=== PATIENT | female | born 1975 | race Asian ===

== ENCOUNTER 2017-07-07 11:35 | Inpatient (IN) | payer BC, OTHER ==
--- NOTE | 2017-07-07 12:22 | PDOC ---
History of Present Illness - General Chief Complaint: Pain, Acute Stated Complaint: PAIN Time Seen by Provider: 07/07/17 12:08 - History of Present Illness Initial Comments: 07/07/17 12:32 Patient is a 41 year old female with a history of peptic ulcers who presents with epigastric abdominal pain with associated back pain. The patient reports that she was diagnosed with peptic ulcers 3 years ago that has been controlled with anti-acid medications. Over the past 3 weeks she has been getting more frequent episodes of burning epigastric pain similar to her pain with the peptic ulcers as well as severe 10/10 episodes of achy back pain that last for 2 -3 hours. She states that she is more concerned about the back pain as the pain episodes are now occurring more frequently almost every other day prompting her visit to the ED today. She also endorses some subjective chills after the pain episodes and notes that her stools appear more paler than usual and her urine appears orange. She denies fevers, SOB, chest pain, or pain with urination. Past History - Past Medical History Allergies/Adverse Reactions: Allergies Allergy/AdvReac Type Severity Reaction Status Date / Time aspirin Allergy Hives Verified 07/07/17 11:51 Penicillins Allergy unknown Verified 07/07/17 11:51 Home Medications: Ambulatory Orders Omeprazole 40 mg PO DAILY 07/07/17 Ranitidine HCl [Zantac] 150 mg PO BID 07/07/17 Anemia: No Asthma: No Cardiac Disorders: No Diabetes: No GI Disorders: Yes (ulcers) HTN: No Hypercholesterolemia: No - Reproductive History (#): 1 Para: 0 - Immunization History Immunization Up to Date: Yes - Psycho/Social/Smoking Cessation Hx Suicidal Ideation: No Smoking Status: No Smoking History: Never smoked Number of Cigarettes Smoked Daily: 0 Information on smoking cessation initiated: No Hx Alcohol Use: No Drug/Substance Use Hx: No Substance Use Type: None Review of Systems - Review of Systems Constitutional: Yes: Chills, Malaise. No: Fever HEENTM: No: Recent change in vision Respiratory: No: Cough, Shortness of Breath Cardiac (ROS): No: Chest Pain, Lightheadedness, Palpitations ABD/GI: Yes: Constipated, Poor Appetite. No: Blood Streaked Bowels, Diarrhea, Nausea, Vomiting, Tarry Stools : No: Burning, Dysuria, Discharge Musculoskeletal: Yes: Back Pain Integumentary: No: Rash Neurological: No: Headache, Numbness, Tingling, Weakness *Physical Exam - Vital Signs Last Vital Signs Temp Pulse Resp BP Pulse Ox 98.2 F 66 18 101/63 99 07/07/17 11:52 07/07/17 11:52 07/07/17 11:52 07/07/17 11:52 07/07/17 11:52 - Physical Exam Comments: 07/07/17 12:38 General Appearance: Nourished. No Apparent Distress HEENT: No Pharyngeal Erythema, Tonsillar Exudate, Tonsillar Erythema Neck: No Cervical Lymphadenopathy Respiratory/Chest: Lungs Clear, Normal Breath Sounds. No Crackles, Rales, Rhonchi, Wheezing Cardiovascular: Regular Rhythm, Regular Rate. No Murmur, Gallop/S3, Gallop/S4 Gastrointestinal/Abdominal: Normal Bowel Sounds, Soft, Mild epigastric tenderness to palpation. No Guarding, Rebound Musculoskeletal: No CVA Tenderness Extremity: Normal Capillary Refill Integumentary: Normal Color, Dry, Warm Neurologic: Fully Oriented, Alert, Normal Mood/Affect, Normal Response Heart Score/ECG Review #1 ECG reviewed & interpreted by me at: 14:59 General ECG Interpretation: Sinus Rhythm, Normal Rate (55), Normal Intervals, No acute ischemic changes ED Treatment Course - LABORATORY CBC & Chemistry Diagram: 07/07/17 13:00 07/07/17 13:00 Medical Decision Making - Medical Decision Making 07/07/17 12:40 Patient is a 41 year old female with a history of peptic ulcers who presents with epigastric abdominal pain with associated back pain. Differential includes but is not limited to: Peptic Ulcer, Gastritis, Pancreatitis, Cholecystitis, Nephrolethiasis, Pyelonephritis, UTI, Metabolic derangement. Given her description of orange urine and severe back pain episodes, it is possible her pain is due to nephrolethiasis. It is also a possibility that her pain is due to cholecystitis, given it's intermittent nature and history of pale stools. Her epigastric pain could be due to her known peptic ulcer disease as well. We will obtain a cbc, cmp, lipase, troponin, EKG, gallbladder US, and UA to evaluate. 07/07/17 13:00 I performed a bedside US that showed a gallbladder wall thickness of 0.18 ( normal .3), no stones, no pericystic fluid and a normal gallbladder. Right and left kidneys demonstrated no hydronephrosis or kidney stones. We will send for an official. 07/07/17 14:15 Official US demonstrated cholelethiasis with multiple stones and sludge and no obvious signs of cholecystitis. CBC is unremarkable and CMP demonstrates an elevation in liver enzymes and biliruben concerning for obstructive disease. It is likely her symptoms are due to cholelethiasis. We will contact the patient's GI specialist Dr. Currie to discuss the case and admit to the hospitalists. 07/07/17 14:32 Discussed the case with Dr. Currie who agreed to consult on the patient and will see her once she is admitted. He requested we obtain a MRCP to evaluate. 07/07/17 14:53 Discussed the case with resident with [facility] who accepted the patient for admission under Dr. López. 07/07/17 15:48 Discussed the case with Dr. Hawk from Surgery who agrees with admission and will evaluate the patient after MRCP. *DC/Admit/Observation/Transfer Diagnosis at time of Disposition: Cholecystitis - Discharge Dispostion Condition at time of disposition: Guarded Admit: Yes
[2017-07-07] MEDS ORDERED: MAG HYDROX/AL HYDROX/SIMETH 30 ML UNIT-DOSE CUP PO ONE (12:57)
[2017-07-07] MEDS ORDERED: SUCRALFATE 1 GM TABLET (FP) PO ONE (12:59)
[2017-07-07] MEDS ORDERED: MAG HYDROX/AL HYDROX/SIMETH 30 ML UNIT-DOSE CUP ONE (13:06)
[2017-07-07] MEDS ORDERED: SUCRALFATE 1 GM TABLET (FP) ONE (13:06)
--- NOTE | 2017-07-07 13:18 | PDOC ---
Attending Attestation - Resident Resident Name: MakiLarry - ED Attending Attestation I have performed the following: I have examined & evaluated the patient, The case was reviewed & discussed with the resident, I agree w/resident's findings & plan, Exceptions are as noted - HPI HPI: 07/07/17 13:03 41-year-old female patient with past medical history of peptic ulcer disease presents to the emergency department for persistent epigastric pain. The patient has had persisting gastritis has progressively worsen last 3 weeks. Several years ago she had an endoscopy performed which demonstrated peptic ulcers but no H. pylori. She's been taking Nexium and Zantac with some minimal relief. Denies nausea or vomiting. However, given the pain, the patient reports that she is now eating crackers and bland food. Denies fevers or chills. Came to the ED for further evaluation. - Physicial Exam PE: 07/07/17 13:18 GENERAL: Awake, alert, and fully oriented, in no acute distress. HEAD: No signs of trauma EYES: PERRLA, EOMI, sclera anicteric, conjunctiva clear ENT: Auricles normal inspection, hearing grossly normal, nares patent, oropharynx clear without exudates. NECK: Normal ROM, supple, no lymphadenopathy, JVD, or masses LUNGS: Breath sounds equal, clear to auscultation bilaterally. No wheezes, and no crackles HEART: Regular rate and rhythm, normal S1 and S2, no murmurs, rubs or gallops ABDOMEN: .TTP epigastric and RUQ. reyes positive. Soft, normoactive bowel sounds. No guarding, no rebound. No masses EXTREMITIES: Normal range of motion, no edema. No clubbing or cyanosis. No cords, erythema, or tenderness NEUROLOGICAL: Cranial nerves II through XII grossly intact. Normal speech, normal gait SKIN: Warm, Dry, normal turgor, no rashes or lesions noted. - Medical Decision Making 07/07/17 13:19 Vital Signs Temp Pulse Resp BP Pulse Ox 98.2 F 66 18 101/63 99 07/07/17 11:52 07/07/17 11:52 07/07/17 11:52 07/07/17 11:52 07/07/17 11:52 Differential differential includes gastritis, peptic ulcer disease, pancreatitis , acute cholecystitis, biliary colic. Labs, ultrasound, GERD cocktail and reassess. 07/07/17 14:05 CBC, BMP 07/07/17 13:00 07/07/17 13:00 CMP Sodium 140 mmol/L (136-145) 07/07/17 13:00 Potassium 3.8 mmol/L (3.5-5.1) 07/07/17 13:00 Chloride 102 mmol/L (98-107) 07/07/17 13:00 Carbon Dioxide 30 mmol/L (21-32) 07/07/17 13:00 Anion Gap 8 (8-16) 07/07/17 13:00 BUN 8 mg/dL (7-18) 07/07/17 13:00 Creatinine 0.7 mg/dL (0.55-1.02) D 07/07/17 13:00 Creat Clearance w eGFR > 60 (>60) 07/07/17 13:00 Random Glucose 93 mg/dL (74-106) D 07/07/17 13:00 Calcium 9.1 mg/dL (8.5-10.1) 07/07/17 13:00 Total Bilirubin 3.0 mg/dL (0.2-1.0) H D 07/07/17 13:00 AST 79 U/L (15-37) H D 07/07/17 13:00 ALT 244 U/L (12-78) H D 07/07/17 13:00 Alkaline Phosphatase 507 U/L (45-117) H D 07/07/17 13:00 Creatine Kinase 73 IU/L (26-192) 07/07/17 13:00 Troponin I < 0.02 ng/ml (0.00-0.05) 07/07/17 13:00 Total Protein 7.7 g/dl (6.4-8.2) 07/07/17 13:00 Albumin 4.0 g/dl (3.4-5.0) D 07/07/17 13:00 Lipase 234 U/L (73-393) 07/07/17 13:00 Ultrasound reviewed. Cholethiasis and sludging. Can not rule out acute norah. CBD 0.5 Zosyn ordered. Within differential is choledholithiasis and/or acute norah. Pt sees Dr. Currie. Pt will likely need MRCP. Will admit patient to hospital.
[2017-07-07 13:38] LABS: BASOPHIL 0.3 % (0-2.0); EOSINOPHIL 0.7 % (0-4.5); MCH 26.7 pg (25.7-33.7); MCHC 32.8 g/dl (32.0-36.0); MEAN CELL VOLUME 81.2 fl (80-96); MEAN PLT VOLUME 7.5 fl (7.5-11.1); NEUTROPHILS 78.7 % (42.8-82.8); PLATELET COUNT 280 K/MM3 (134-434); RDW 14.1 % (11.6-15.6); WHITE BLOOD COUNT 8.8 K/mm3 (4.0-10.0)
[2017-07-07 13:47] LABS: CPK 73 IU/L (26-192); TROPONIN I < 0.02 ng/ml (0.00-0.05)
[2017-07-07 13:54] LABS: ALK PHOS 507 U/L (45-117); ANION GAP 8 (8-16); CALCIUM 9.1 mg/dL (8.5-10.1); CO2 30 mmol/L (21-32); CREATININE 0.7 mg/dL (0.55-1.02); GLUCOSE,RANDOM 93 mg/dL (74-106); SGOT/AST 79 U/L (15-37); SGPT/ALT 244 U/L (12-78); TOT PROT 7.7 g/dl (6.4-8.2)
[2017-07-07] MEDS ORDERED: METRONIDAZOLE 500 MG PREMIXED 100 ML IVPB ONE ×2 (14:17→14:35)
[2017-07-07] MEDS ORDERED: LEVOFLOXACIN 500 MG IVPB 100 ML IVPB ONE ×2 (14:17→14:35)
[2017-07-07 15:07] LABS: URINE APPEARANCE CLEAR; URINE BILIRUBIN NEGATIVE (NEGATIVE); URINE BLOOD 1+ (NEGATIVE); URINE COLOR YELLOW; URINE GLUCOSE (UA) NEGATIVE (NEGATIVE); URINE KETONE NEGATIVE (NEGATIVE); URINE LEUK ESTERASE TRACE (NEGATIVE); URINE NITRITE NEGATIVE (NEGATIVE); URINE PROTEIN NEGATIVE (NEGATIVE); URINE UROBILINOGEN NEGATIVE mg/dL (0.2-1.0)
[2017-07-07] MEDS ORDERED: SODIUM CHLORIDE 1,000 ML IV SCH (15:15)
[2017-07-07 15:25] LABS: URINE RBC 1 /hpf (0-3); URINE WBC 5 /hpf (3-5)
--- NOTE | 2017-07-07 16:11 | CON.GI ---
Consult Consult Specialty:: Gastroenterology Referred by:: Dr Galicia Reason for Consultation:: Abdominal pain - History of Present Illness Chief Complaint: Abdominal pain radiating into the back History of Present Illness: 41F presents with abdominal pain that radiates into her back. She is known to have gallstones. MRCP has been discussed with Dr Urrutia. It revealed GB stones and pericholecystic fluid but no CBD stones. She has been taking omeprazole and gaviscon for this pain since I recently saw her in the office and has not had relief. She has been having almost daily pain, sometimes with chills. She has been afraid to eat. She had an EGD with me about 3 years ago which revealed shallow gastric ulcerations. 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 Place of : [facility] History of Recent Travel: No Home Medications - Allergies Allergies/Adverse Reactions: Allergies Allergy/AdvReac Type Severity Reaction Status Date / Time aspirin Allergy Hives Verified 07/07/17 11:51 Penicillins Allergy unknown Verified 07/07/17 11:51 - Home Medications Home Medications: Ambulatory Orders Omeprazole 40 mg PO DAILY 07/07/17 Ranitidine HCl [Zantac] 150 mg PO BID 07/07/17 Family Disease History - Family Disease History Family Disease History: Other: Father ( CVA in his 60s), Mother (alive) Review of Systems - Review of Systems Constitutional: reports: Chills Eyes: reports: No Symptoms HENT: reports: No Symptoms Neck: reports: No Symptoms Cardiovascular: reports: No Symptoms Respiratory: reports: No Symptoms Gastrointestinal: reports: Abdominal Pain, Nausea Genitourinary: reports: No Symptoms Musculoskeletal: reports: No Symptoms Integumentary: reports: No Symptoms Neurological: reports: No Symptoms Endocrine: reports: No Symptoms Hematology/Lymphatic: reports: No Symptoms Psychiatric: reports: No Symptoms Physical Exam-GI Vital Signs: Vital Signs Temperature 98 F 07/07/17 15:50 Pulse Rate 81 07/07/17 15:50 Respiratory Rate 17 07/07/17 15:50 Blood Pressure 131/75 07/07/17 15:50 O2 Sat by Pulse Oximetry (%) 98 07/07/17 15:50 CBC,CMP WBC 8.8 K/mm3 (4.0-10.0) 07/07/17 13:00 RBC 5.12 M/mm3 (3.60-5.2) D 07/07/17 13:00 Hgb 13.7 GM/dL (10.7-15.3) D 07/07/17 13:00 Hct 41.6 % (32.4-45.2) D 07/07/17 13:00 MCV 81.2 fl (80-96) 07/07/17 13:00 MCH 26.7 pg (25.7-33.7) 07/07/17 13:00 MCHC 32.8 g/dl (32.0-36.0) 07/07/17 13:00 RDW 14.1 % (11.6-15.6) 07/07/17 13:00 Plt Count 280 K/MM3 (134-434) D 07/07/17 13:00 MPV 7.5 fl (7.5-11.1) 07/07/17 13:00 Neutrophils % 78.7 % (42.8-82.8) 07/07/17 13:00 Lymphocytes % 11.0 % (8-40) 07/07/17 13:00 Monocytes % 9.3 % (3.8-10.2) D 07/07/17 13:00 Eosinophils % 0.7 % (0-4.5) D 07/07/17 13:00 Basophils % 0.3 % (0-2.0) 07/07/17 13:00 Sodium 140 mmol/L (136-145) 07/07/17 13:00 Potassium 3.8 mmol/L (3.5-5.1) 07/07/17 13:00 Chloride 102 mmol/L (98-107) 07/07/17 13:00 Carbon Dioxide 30 mmol/L (21-32) 07/07/17 13:00 Anion Gap 8 (8-16) 07/07/17 13:00 BUN 8 mg/dL (7-18) 07/07/17 13:00 Creatinine 0.7 mg/dL (0.55-1.02) D 07/07/17 13:00 Creat Clearance w eGFR > 60 (>60) 07/07/17 13:00 Random Glucose 93 mg/dL (74-106) D 07/07/17 13:00 Calcium 9.1 mg/dL (8.5-10.1) 07/07/17 13:00 Total Bilirubin 3.0 mg/dL (0.2-1.0) H D 07/07/17 13:00 AST 79 U/L (15-37) H D 07/07/17 13:00 ALT 244 U/L (12-78) H D 07/07/17 13:00 Alkaline Phosphatase 507 U/L (45-117) H D 07/07/17 13:00 Creatine Kinase 73 IU/L (26-192) 07/07/17 13:00 Troponin I < 0.02 ng/ml (0.00-0.05) 07/07/17 13:00 Total Protein 7.7 g/dl (6.4-8.2) 07/07/17 13:00 Albumin 4.0 g/dl (3.4-5.0) D 07/07/17 13:00 Lipase 234 U/L (73-393) 07/07/17 13:00 Current Medications Generic Name Dose Route Start Last Admin Trade Name Freq PRN Reason Stop Dose Admin Sodium Chloride 1,000 mls @ 100 mls/hr 07/07/17 15:15 07/07/17 15:48 Normal Saline - IV 100 mls/hr ASDIR TITA Administration Constitutional: Yes: Calm Eyes: Yes: Sclera Icterus HENT: Yes: Normocephalic Neck: Yes: Supple Cardiovascular: Yes: Regular Rate and Rhythm Respiratory: Yes: CTA Bilaterally Gastrointestinal Inspection: Yes: Scars (healed RIH incision) ...Auscultate: Yes: Normoactive Bowel Sounds ...Palpate: Yes: Soft, Tenderness (RUQ but no rebound) ...Rectal Exam: Yes: Deferred (was guaiac negative recently in the office) Imaging - Results MRI: Image Reviewed (normal CBD, gallstones with pericholecystic fluid) Assessment/Plan The elevated LFTs suggest stone passage through the CBD. The MRCP indicates that the stone has passed but will need to follow the LFT pattern. If they fail to normalize then an ERCP may become necessary. I have discussed ERCP in detail with the patient and informed her of the potential for such risks as perforation , hemorrhage and multiorgan failure that can arise after ERCP induced pancreatitis. She is in a position to make an informed consent. If LFTs begin to normalized can proceed with lap choly and ideally with intraoperative cholangiogram. Discussed case with Dr Hawk. Agree with need for antibiotics
[2017-07-07] MEDS ORDERED: LACTATED RINGERS SOLUTION 1,000 ML IV SCH (17:00)
[2017-07-07 17:31] VITALS: BMI 19.7
--- NOTE | 2017-07-07 17:41 | CONSULT ---
Consult Consult Specialty:: General Surgery Referred by:: ER/Dr. Gambino Reason for Consultation:: cholecystitis/poss choledocholithiasis - History of Present Illness Chief Complaint: epigastric pain to back, anorexia, chills History of Present Illness: 41yo healthy F with h/o gastritis and peptic ulcer dx on endoscopy 3 yrs ago on daily omeprazole, began having epigastric pain a little over 3 weeks ago and thought it was her PUD. She also takes Zantac prn, but it wasn't helping. She recalls the first severe episode occurring on Jun 14, but does not relate it to specific food intake. The pain is focused in the epigastric area but also hurts in the center of her back. She continued taking her anti-acid medications, but the pain has continued to come and go with increasing frequency. When the pain goes away, it is entirely gone, but when it occurs, it has caused significant pain, sometimes associated with chills. 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 She had not had n/v until last night, when she did have one episode which came on after eating some crackers. In the last several days, she has mainly tolerated crackers and almond milk. Yesterday, she did try a little bit of salmon as well, before the pain returned. She has f/u scheduled with Dr. Currie from GI for Jul 22, but came to ER today because she was getting concerned about the increasing frequency of pain and that it was in her back, not just her abdomen. She thinks she was told in the past that she does have gallstones but that there was no concern about them at the time. In the ER, she is afebrile, wbc 8.8, lipase normal, LFTs elevated with bili 3, alk phos 500, ALT/AST up. US showed gallstones, mildly distended gb, no wall thickening or pericholecystic fluid, cbd 5mm, no dilation or intraductal stones. GI was consulted, and MRCP has been done. This shows gallstones as well , with a little bit of fluid under the right edge of liver and gallbladder fundus, mildly overdistended gb, cbd 6-7mm, no biliary dilation and no intraductal stones. She has been admitted to the hospitalist service for presumed cholecystitis. ER started fluids and Levo/Flagyl, as she is allergic to penicillin. The patient states this was from a scratch allergy test, though she doesn't know if she has taken pcn before with any reaction. She might have taken amoxicillin in the past without reaction. She currently has no pain without palpation. - History Source History Provided By: Patient Limitations to Obtaining History: No Limitations - Past Medical History Gastrointestinal: Yes: Gastritis, Peptic Ulcer Disease (dx 3 yrs ago on endoscopy - sched for f/u 07/22/17) Hepatobiliary: Yes: Cholelithiasis ...LMP: 12/12/12 ...: No ...: 2 ...Para: 2 - Past Surgical History Past Surgical History: Yes: Hernia Repair (right inguinal hernia repair at age 13), Upper Endoscopy (3 yrs ago w/Dr. 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 History of Recent Travel: No Home Medications - Allergies Allergies/Adverse Reactions: Allergies Allergy/AdvReac Type Severity Reaction Status Date / Time aspirin Allergy Hives Verified 07/07/17 11:51 Penicillins Allergy unknown Verified 07/07/17 11:51 - Home Medications Home Medications: Ambulatory Orders Omeprazole 40 mg PO DAILY 07/07/17 Ranitidine HCl [Zantac] 150 mg PO BID 07/07/17 Home Medications (free text): MVI but not in last couple weeks Family Disease History - Family Disease History Family Disease History: Other: Father ( CVA in his 60s), Mother (alive) Review of Systems - Review of Systems Constitutional: reports: Chills (with/after pain comes), Loss of Appetite. denies: Fever Eyes: reports: Other (wears contact lenses). denies: Recent Change in Vision HENT: denies: Difficult Swallowing, Throat Pain Neck: denies: Swollen Glands, Tenderness Cardiovascular: denies: Chest Pain, Palpitations Respiratory: denies: Cough, SOB Gastrointestinal: reports: Abdominal Pain (with hpi x 3 weeks, getting more frequent), Vomiting (one episode last night), Other (stools light yellow x 3 weeks). denies: Constipation, Diarrhea Genitourinary: denies: Burning, Discharge, Other (urine dark/orange last 3 wks) Musculoskeletal: denies: Back Pain, Joint Pain Integumentary: reports: Change in Color (noticed when pointed out in ER - slt yellowish). denies: Rash Neurological: denies: Dizziness, Headache Physical Exam Vital Signs: Vital Signs Temperature 98 F 07/07/17 15:50 Pulse Rate 66 07/07/17 16:45 Respiratory Rate 18 07/07/17 16:45 Blood Pressure 108/73 07/07/17 16:45 O2 Sat by Pulse Oximetry (%) 100 07/07/17 16:45 Constitutional: Yes: Well Nourished, No Distress, Calm Eyes: Yes: EOM Intact, Sclera Icterus, Other (+ contact lenses bilaterally) HENT: Yes: Atraumatic, Normocephalic, Other (yellow underneath tongue) Neck: Yes: Supple, Trachea Midline Cardiovascular: Yes: Regular Rate and Rhythm. No: Murmur Respiratory: Yes: Regular, CTA Bilaterally Gastrointestinal: Yes: Normal Bowel Sounds, Soft, Tenderness, Epigastrium ( without rebound or guarding). No: Distention ...Rectal Exam: Yes: Deferred Renal/: No: CVA Tenderness - Left, CVA Tenderness - Right Musculoskeletal: No: Back Pain, Joint Swelling Extremities: Yes: Cool (fingertips/hands). No: Cyanosis, Delayed Capillary Refill Edema: No Peripheral Pulses WNL: Yes Integumentary: Yes: Jaundice (pt able to appreciate mild jaundice once pointed out). No: Rash Neurological: Yes: Alert, Oriented Psychiatric: Yes: Alert, Oriented Labs: CBCD WBC 8.8 K/mm3 (4.0-10.0) 07/07/17 13:00 RBC 5.12 M/mm3 (3.60-5.2) D 07/07/17 13:00 Hgb 13.7 GM/dL (10.7-15.3) D 07/07/17 13:00 Hct 41.6 % (32.4-45.2) D 07/07/17 13:00 MCV 81.2 fl (80-96) 07/07/17 13:00 MCHC 32.8 g/dl (32.0-36.0) 07/07/17 13:00 RDW 14.1 % (11.6-15.6) 07/07/17 13:00 Plt Count 280 K/MM3 (134-434) D 07/07/17 13:00 MPV 7.5 fl (7.5-11.1) 07/07/17 13:00 CMP Sodium 140 mmol/L (136-145) 07/07/17 13:00 Potassium 3.8 mmol/L (3.5-5.1) 07/07/17 13:00 Chloride 102 mmol/L (98-107) 07/07/17 13:00 Carbon Dioxide 30 mmol/L (21-32) 07/07/17 13:00 Anion Gap 8 (8-16) 07/07/17 13:00 BUN 8 mg/dL (7-18) 07/07/17 13:00 Creatinine 0.7 mg/dL (0.55-1.02) D 07/07/17 13:00 Creat Clearance w eGFR > 60 (>60) 07/07/17 13:00 Calcium 9.1 mg/dL (8.5-10.1) 07/07/17 13:00 Total Bilirubin 3.0 mg/dL (0.2-1.0) H D 07/07/17 13:00 AST 79 U/L (15-37) H D 07/07/17 13:00 ALT 244 U/L (12-78) H D 07/07/17 13:00 Alkaline Phosphatase 507 U/L (45-117) H D 07/07/17 13:00 Total Protein 7.7 g/dl (6.4-8.2) 07/07/17 13:00 Albumin 4.0 g/dl (3.4-5.0) D 07/07/17 13:00 lipase 234 (wnl) Imaging - Results Ultrasound: Report Reviewed (see hpi), Image Reviewed MRI: Report Reviewed (see hpi), Image Reviewed Problem List - Problems (1) Calculus of gallbladder with acute and chronic cholecystitis without obstruction Assessment/Plan: admitted to medicine no MRCP evidence of choledocholithiasis, but labs suggest likely passage of stone NPO/IVF pain meds prn GI/DVT prophylaxis IV antibiotics trend labs including amylase/lipase in am check coags, send T&S in am if LFTs and/or WBC up in am, GI is prepared to proceed with ERCP tomorrow afternoon if labs normalizing, will plan for surgery Fri or Fri Discussed R/B/A of laparoscopic possible open cholecystectomy with patient including but not limited to bleeding, infection, injury to adjacent structures , bile duct leak or injury, need for further procedures; alternatives include delayed or no surgery with attendant risks of recurrent cholecystitis, pancreatitis, sepsis, cholangitis. Pt understands and is agreeable to operation ; informed consent signed and on chart for same. Code(s): K80.12 - CALCULUS OF GB W ACUTE AND CHRONIC CHOLECYST W/O OBSTRUCTION (2) Elevated LFTs Assessment/Plan: see above Code(s): R79.89 - OTHER SPECIFIED ABNORMAL FINDINGS OF BLOOD CHEMISTRY (3) PUD (peptic ulcer disease) Assessment/Plan: continue PPI while in hospital Code(s): K27.9 - PEPTIC ULC, SITE UNSP, UNSP AC OR CHR, W/O HEMOR OR PERF Assessment/Plan Thank you for the opportunity to participate in the care of this patient.
--- NOTE | 2017-07-07 18:13 | PN ---
Teaching Attending Note Name of Resident: Oscar Bonner ATTENDING PHYSICIAN STATEMENT I saw and evaluated the patient. I reviewed the resident's note and discussed the case with the resident. I agree with the resident's findings and plan as documented. SUBJECTIVE: This is a 41 year old woman with a history of gastric ulcers, gallstones who comes to the ER complaining of epigastric pain that radiates to her back. She recently saw Dr. Currie for similar symptoms and started taking Gaviscon and Omeprazole. She has a history of gastric ulcers found on EGD 3 years ago. OBJECTIVE: Vital Signs Period Temp Pulse Resp BP Sys/Ford Pulse Ox Last 24 Hr 98 F-98.2 F 66-81 17-18 101-131/63-75 98-100 GENERAL: Jaundiced HEART: S1S2, RRR LUNGS: Clear ABDOMEN: Soft, non-distended, (+) RUQ tenderness, normal BS EXTREMITIES: No edema ASSESSMENT AND PLAN: This is a 41 year old woman with a history of gastric ulcers, gallstones who presented to the ER today with epigastric pain radiating to her back. 1. Cholelithiasis with probable choledocholithiasis and passed stone - RUQ US shows GB sludge, no evidence of cholecystitis, normal CBD - MRCP shows cholelithiasis, trace free fluid, mild overdistention of GB, borderline CBD - NPO - Levaquin, Flagyl - IV fluid - Repeat LFTs in AM - if improving, will do laparoscopic cholecystectomy, otherwise will need ERCP 2. Gastric ulcers - Protonix
[2017-07-07] MEDS: METRONIDAZOLE 500 MG PREMIXED 100 ML IVPB SCH (18:37)
--- NOTE | 2017-07-07 19:40 | HP ---
CHIEF COMPLAINT: pain PCP: HISTORY OF PRESENT ILLNESS: The patient is a 41 yo f w/ PMH peptic ulcer disease who presents to the ED complaining of abdominal pain. She was in her usual state of health until 3 weeks ago when she began to experience burning 10/10 epigastric pain which radiated to her back. The pain consisted of 2-3 hour "attacks" during which the pain was constant and not alleviated by any intervention. The pain had no correlation with food. The patient believed that the pain was similar to her peptic ulcer pain, so she saw Dr. Currie who prescribed her omeprazole and gaviscon which did not help. The pain became more frequent and began to be associated with chills, prompting the patient to come to the ED. ER course was notable for: (1) AST 79, ALT 244, ALP 507 (2) abdominal u/s showing cholelithiasis (3) MRCP showing cholelithiasis Recent Travel: none PAST MEDICAL HISTORY: -see HPI PAST SURGICAL HISTORY: -inguinal hernia repair Social History: Smoking: smoked 1PPD for 10 years; quit 10 years ago Alcohol: socially Drugs: denies Family History: HTN in father' side of the family Allergies aspirin Allergy (Verified 07/07/17 11:51) Hives Penicillins Allergy (Verified 07/07/17 11:51) unknown HOME MEDICATIONS: Home Medications Medication Instructions Recorded Omeprazole 40 mg PO DAILY 07/07/17 Ranitidine HCl [Zantac] 150 mg PO BID 07/07/17 REVIEW OF SYSTEMS CONSTITUTIONAL: Absent: fever, diaphoresis, generalized weakness, malaise, loss of appetite, weight change HEENT: Absent: rhinorrhea, nasal congestion, throat pain, throat swelling, difficulty swallowing, mouth swelling, ear pain, eye pain, visual changes CARDIOVASCULAR: Absent: chest pain, syncope, palpitations, irregular heart rate, lightheadedness , peripheral edema RESPIRATORY: Absent: cough, shortness of breath, dyspnea with exertion, orthopnea, wheezing, stridor, hemoptysis GASTROINTESTINAL: Absent: abdominal distension, nausea, vomiting, diarrhea, constipation, melena, hematochezia GENITOURINARY: Absent: dysuria, frequency, urgency, hesitancy, hematuria, flank pain, genital pain MUSCULOSKELETAL: Absent: myalgia, arthralgia, joint swelling, back pain, neck pain SKIN: Absent: rash, itching, pallor HEMATOLOGIC/IMMUNOLOGIC: Absent: easy bleeding, easy bruising, lymphadenopathy, frequent infections ENDOCRINE: Absent: unexplained weight gain, unexplained weight loss, heat intolerance, cold intolerance NEUROLOGIC: Absent: headache, focal weakness or paresthesias, dizziness, unsteady gait, seizure, mental status changes, bladder or bowel incontinence PSYCHIATRIC: Absent: anxiety, depression, suicidal or homicidal ideation, hallucinations. PHYSICAL EXAMINATION Vital Signs - 24 hr 07/07/17 07/07/17 07/07/17 15:50 16:45 18:42 Temperature 98 F 98.1 F Pulse Rate 66 54 L Pulse Rate [ 81 Apical] Respiratory 17 18 18 Rate Blood Pressure 108/73 132/76 Blood Pressure 131/75 [Right Arm] O2 Sat by Pulse 98 100 Oximetry (%) GENERAL: Awake, alert, and fully oriented, in no acute distress. HEAD: Normal with no signs of trauma. EYES: extraocular movements intact, sclera anicteric, conjunctiva clear. No lid lag. NECK: Normal range of motion, supple without lymphadenopathy, JVD, or masses. LUNGS: Breath sounds equal, clear to auscultation bilaterally. No wheezes, and no crackles. No accessory muscle use. HEART: Regular rate and rhythm, normal S1 and S2 without murmur, rub or gallop. ABDOMEN: Soft, mild tenderness to palpation in RUQ, not distended, normoactive bowel sounds, no guarding, no rebound, no masses. No hepatomegaly or splenomegaly. MUSCULOSKELETAL: Normal range of motion at all joints. No bony deformities or tenderness. No CVA tenderness. UPPER EXTREMITIES: 2+ pulses, warm, well-perfused. No cyanosis. No clubbing. No peripheral edema. LOWER EXTREMITIES: 2+ pulses, warm, well-perfused. No calf tenderness. No peripheral edema. NEUROLOGICAL: Cranial nerves II-X intact. Normal speech. gait not observed. PSYCHIATRIC: Cooperative. Good eye contact. Appropriate mood and affect. SKIN: Warm, dry, normal turgor, no rashes or lesions noted, normal capillary refill. ASSESSMENT/PLAN: 41 yo f w/ PMH PUD presents complaining of 10/10 epigastric abdominal pain radiating to her back. #choledocholithiasis converting to cholelithiasis following stone passage -AST 79, ALT 244, ALP 507 -Abdominal pain has resolved -AM CBC, CMP, T&S, amylase, lipase, PT, PTT/INR -abd u/s and MRCP shows cholelithiasis and sludge in gallbladder -GI consult: Dr. Currie -Surgery consult: Dr. Hawk -plan for either ERCP or cholecystectomy tomorrow based off of morning labs; NPO past midnight #PMH Peptic ulcer disease -Protonix 40 IV BID -Sucralfate, Mylanta in ED #FEN -LR @ 100 -monitor lytes -clear liquids, NPO past midnight #Dispo: -Admitted for cholelithaisis; for ERCP or lap norah tomorrow Problem List - Problem (1) Calculus of gallbladder with acute and chronic cholecystitis without obstruction Code(s): K80.12 - CALCULUS OF GB W ACUTE AND CHRONIC CHOLECYST W/O OBSTRUCTION (2) Elevated LFTs Code(s): R79.89 - OTHER SPECIFIED ABNORMAL FINDINGS OF BLOOD CHEMISTRY (3) PUD (peptic ulcer disease) Code(s): K27.9 - PEPTIC ULC, SITE UNSP, UNSP AC OR CHR, W/O HEMOR OR PERF Visit type - Emergency Visit Emergency Visit: Yes ED Registration Date: 07/07/17 Care time: The patient presented to the Emergency Department on the above date and was hospitalized for further evaluation of their emergent condition. - New Patient This patient is new to me today: Yes Date on this admission: 07/07/17 - Critical Care Critical Care patient: No
[2017-07-07] MEDS ORDERED: HYDROmorphone HCL CARPU-JECT 1 MG/1 ML DISP.SYRIN IM PRN (19:50)
[2017-07-07] MEDS ORDERED: PANTOPRAZOLE 40 MG TABLET (FP) PO SCH (22:00)
[2017-07-08] MEDS: METRONIDAZOLE 500 MG PREMIXED 100 ML IVPB SCH ×3 (01:50→17:58)
[2017-07-08 08:25] LABS: BASOPHIL 0.6 % (0-2.0); EOSINOPHIL 1.1 % (0-4.5); MCH 26.5 pg (25.7-33.7); MCHC 32.4 g/dl (32.0-36.0); MEAN CELL VOLUME 81.6 fl (80-96); MEAN PLT VOLUME 7.5 fl (7.5-11.1); NEUTROPHILS 75.7 % (42.8-82.8); PLATELET COUNT 265 K/MM3 (134-434); RDW 13.9 % (11.6-15.6); WHITE BLOOD COUNT 4.9 K/mm3 (4.0-10.0)
[2017-07-08 08:47] LABS: INR 1.12 (0.82-1.09); PROTHROMBIN TIME (PATIENT) 12.3 SEC (9.98-11.88)
[2017-07-08 08:50] LABS: ACTIVATED PTT 36.3 SECONDS (26.9-34.4)
[2017-07-08 09:17] LABS: C-REACTIVE PROTEIN 2.3 MG/DL (0.00-0.3)
[2017-07-08 09:22] LABS: ALBUMIN 3.5 g/dl (3.4-5.0); ALK PHOS 377 U/L (45-117); ANION GAP 9 (8-16); BILIRUBIN,TOTAL 1.7 mg/dL (0.2-1.0); CALCIUM 8.7 mg/dL (8.5-10.1); CO2 26 mmol/L (21-32); CREATININE 0.6 mg/dL (0.55-1.02); GLUCOSE,RANDOM 68 mg/dL (74-106); MAGNESIUM 2.2 mg/dL (1.8-2.4); PHOSPHOROUS 2.3 mg/dL (2.5-4.9); SGOT/AST 35 U/L (15-37); SGPT/ALT 170 U/L (12-78); TOT PROT 6.6 g/dl (6.4-8.2)
--- NOTE | 2017-07-08 09:30 | PN ---
Progress Note (short form) - Note Progress Note: GI NOte: LFTs are normalizing. ERCP cancelled. Low fat diet. Can proceed with lap choly.
[2017-07-08] MEDS ORDERED: PANTOPRAZOLE SODIUM 40 MG in SODIUM CHLORIDE 100 ML IVPB SCH (10:00)
[2017-07-08] MEDS ORDERED: LEVOFLOXACIN 500 MG IVPB 100 ML IVPB SCH (10:00)
--- NOTE | 2017-07-08 11:50 | PN ---
Progress Note (short form) - Note Progress Note: Pt seen and examined in bed. Twinge in back when getting up, but otherwise pain has resolved. No specific complaints. Vital Signs Period Temp Pulse Resp BP Sys/Ford Pulse Ox Last 24 Hr 98 F-98.9 F 54-81 17-18 101-132/62-76 98-100 PE: abdomen soft, nondistended, tender RUQ and epigastric without rebound or guarding CBCD WBC 4.9 K/mm3 (4.0-10.0) D 07/08/17 07:30 RBC 4.89 M/mm3 (3.60-5.2) 07/08/17 07:30 Hgb 12.9 GM/dL (10.7-15.3) 07/08/17 07:30 Hct 39.9 % (32.4-45.2) 07/08/17 07:30 MCV 81.6 fl (80-96) 07/08/17 07:30 MCHC 32.4 g/dl (32.0-36.0) 07/08/17 07:30 RDW 13.9 % (11.6-15.6) 07/08/17 07:30 Plt Count 265 K/MM3 (134-434) 07/08/17 07:30 MPV 7.5 fl (7.5-11.1) 07/08/17 07:30 CMP Sodium 141 mmol/L (136-145) 07/08/17 07:30 Potassium 4.0 mmol/L (3.5-5.1) 07/08/17 07:30 Chloride 106 mmol/L (98-107) 07/08/17 07:30 Carbon Dioxide 26 mmol/L (21-32) 07/08/17 07:30 Anion Gap 9 (8-16) 07/08/17 07:30 BUN 6 mg/dL (7-18) L D 07/08/17 07:30 Creatinine 0.6 mg/dL (0.55-1.02) 07/08/17 07:30 Creat Clearance w eGFR > 60 (>60) 07/08/17 07:30 Calcium 8.7 mg/dL (8.5-10.1) 07/08/17 07:30 Total Bilirubin 1.7 mg/dL (0.2-1.0) H D 07/08/17 07:30 AST 35 U/L (15-37) D 07/08/17 07:30 ALT 170 U/L (12-78) H D 07/08/17 07:30 Alkaline Phosphatase 377 U/L (45-117) H D 07/08/17 07:30 Total Protein 6.6 g/dl (6.4-8.2) 07/08/17 07:30 Albumin 3.5 g/dl (3.4-5.0) 07/08/17 07:30 LFTs trending down, wbc down, am/lip normal A/P: cholelithiasis with acute on chronic cholecystitis with likely passed stone Pt agreeable to operation, she is still NPO Will proceed today with lap poss open cholecystectomy Plan resume po postop, prn pain meds Continue antibiotics until postop Consent on chart Problem List - Problems (1) Calculus of gallbladder with acute and chronic cholecystitis without obstruction Code(s): K80.12 - CALCULUS OF GB W ACUTE AND CHRONIC CHOLECYST W/O OBSTRUCTION (2) Elevated LFTs Code(s): R79.89 - OTHER SPECIFIED ABNORMAL FINDINGS OF BLOOD CHEMISTRY (3) PUD (peptic ulcer disease) Code(s): K27.9 - PEPTIC ULC, SITE UNSP, UNSP AC OR CHR, W/O HEMOR OR PERF
[2017-07-08] MEDS ORDERED: PROMETHAZINE HCL 25 MG/1 ML VIAL IVPUSH PRN (11:52)
[2017-07-08] MEDS ORDERED: ONDANSETRON 4 MG/2 ML VIAL IVPUSH PRN ×2 (11:52→14:45)
[2017-07-08] MEDS ORDERED: LACTATED RINGERS SOLUTION 1,000 ML IV SCH ×2 (12:00→14:45)
[2017-07-08] MEDS ORDERED: BUPIVACAINE HCL/PF 0.5% (5MG/ML) 10 ML VIAL ONE (12:21)
[2017-07-08] MEDS ORDERED: PROPOFOL 20 ML ONE (12:24)
[2017-07-08] MEDS ORDERED: ROCURONIUM BROMIDE 50 MG/5 ML VIAL ONE (12:24)
[2017-07-08] MEDS ORDERED: LIDOCAINE HCL/PF 2% SDV 5ML VIAL ONE (12:24)
[2017-07-08] MEDS ORDERED: MIDAZOLAM HCL 2 MG/2 ML SINGLE DOSE VIAL ONE (12:24)
[2017-07-08] MEDS ORDERED: BUPIVACAINE HCL/PF 0.5% (5MG/ML) 10 ML VIAL IJ ONE (12:56)
[2017-07-08] MEDS ORDERED: DEXAMETHASONE SOD PHOSPHATE 4 MG/1 ML VIAL ONE (13:57)
[2017-07-08] MEDS ORDERED: NEOSTIGMINE METHYLSULFATE 0.5 MG/ML - 10 ML MDV ONE (13:57)
[2017-07-08] MEDS ORDERED: GLYCOPYRROLATE 0.2 MG/1 ML VIAL ONE (13:57)
--- NOTE | 2017-07-08 14:32 | OP ---
Operative Note - Note: Operative Date: 07/08/17 Pre-Operative Diagnosis: acute and chronic cholecystitis with cholelithiasis Operation: laparoscopic cholecystectomy Findings: enlarged gallbladder with multiple stones; critical view identified Post-Operative Diagnosis: Same as Pre-op Surgeon: Han Hawk Hvac Lead: Jonh Schreiber Anesthesiologist/BEHAVIORAL ANALYST: Anna Bower (edwardo Orozco) Anesthesia: General, Local (17ml 0.5% marcaine) Specimens Removed: gallbladder to pathology Estimated Blood Loss (mls): 5 Fluid Volume Replaced (mls): 1,200 (crystalloid) Operative Report Dictated: Yes
[2017-07-08] MEDS ORDERED: ACETAMINOPHEN INJECTION 100 ML IVPB ONE (14:36)
[2017-07-08] MEDS: ACETAMINOPHEN 1000 MG/100 ML VIAL (NON FORMULARY) IVPB ONE ×2 (14:39→16:23)
[2017-07-08] MEDS ORDERED: oxyCODONE HCL 5 MG TABLET PO PRN (14:46)
[2017-07-08] MEDS ORDERED: ACETAMINOPHEN 325 MG TABLET (FP) PO PRN ×4 (14:46→20:30)
--- NOTE | 2017-07-08 15:10 | PN ---
Progress Note (short form) - Note Progress Note: GI NOte: ERCP cancelled when LFTs began to improve. Patient has not yet returned from surgery.
[2017-07-08] MEDS ORDERED: NAPH,MB-DB/K PH,MBDB POWDER PACKET PO ONE (16:44)
--- NOTE | 2017-07-08 16:45 | PN ---
Teaching Attending Note Name of Resident: Oscar Bonner ATTENDING PHYSICIAN STATEMENT I saw and evaluated the patient. I reviewed the resident's note and discussed the case with the resident. I agree with the resident's findings and plan as documented. SUBJECTIVE:pt in OR and not examined by me ASSESSMENT AND PLAN: 41 yo F with PMH of gastric ulcers, gallstones who presented to the ER today with epigastric pain radiating to her back. 1. Cholelithiasis with probable choledocholithiasis and passed stone- currently in OR for laprapscopic cholecystectomy. will f/u if any complications from surgery. trend LFT. on Levaquin/Flagyl Day 2. GI and surgery on board. pain control. 2. Gastric ulcers- Protonix 3. Hypophosphatemia- Neutraphos post-op 4. d/c planning pending results of surgery and post-op LFT
--- NOTE | 2017-07-08 17:22 | PN ---
Physical Exam: SUBJECTIVE: Patient seen and examined. afebrile overnight. Patient states she has not had any episodes of pain overnight. She feels better today. For elective cholecytectomy today. OBJECTIVE: Vital Signs Period Temp Pulse Resp BP Sys/Ford Pulse Ox Last 24 Hr 97.8 F-98.9 F 54-87 13-20 105-132/62-76 98-100 GENERAL: The patient is awake, alert, and fully oriented, in no acute distress. HEAD: Normal with no signs of trauma. EYES: extraocular movements intact, sclera anicteric, conjunctiva clear. No ptosis. NECK: Trachea midline, full range of motion, supple. LUNGS: Breath sounds equal, clear to auscultation bilaterally, no wheezes, no crackles, no accessory muscle use. HEART: Regular rate and rhythm, S1, S2 without murmur, rub or gallop. ABDOMEN: Soft, nontender, nondistended, normoactive bowel sounds, no guarding, no rebound. EXTREMITIES: 2+ pulses, warm, well-perfused, no edema. NEUROLOGICAL: Cranial nerves II through X grossly intact. Normal speech, gait not observed. PSYCH: Normal mood, normal affect. SKIN: Warm, dry, normal turgor, no rashes or lesions noted Laboratory Results - last 24 hr 07/08/17 07/08/17 07/08/17 07:30 07:30 07:30 WBC 4.9 D RBC 4.89 Hgb 12.9 Hct 39.9 MCV 81.6 MCH 26.5 MCHC 32.4 RDW 13.9 Plt Count 265 MPV 7.5 Neutrophils % 75.7 Lymphocytes % 15.1 D Monocytes % 7.5 Eosinophils % 1.1 Basophils % 0.6 INR 1.12 PTT (Actin FS) 36.3 H Sodium 141 Potassium 4.0 Chloride 106 Carbon Dioxide 26 Anion Gap 9 BUN 6 L D Creatinine 0.6 Creat Clearance w eGFR > 60 Random Glucose 68 L D Calcium 8.7 Phosphorus 2.3 L Magnesium 2.2 Total Bilirubin 1.7 H D Direct Bilirubin AST 35 D ALT 170 H D Alkaline Phosphatase 377 H D C-Reactive Protein Total Protein 6.6 Albumin 3.5 Total Amylase Lipase Blood Type Antibody Screen 07/08/17 07/08/17 07:30 07:30 WBC RBC Hgb Hct MCV MCH MCHC RDW Plt Count MPV Neutrophils % Lymphocytes % Monocytes % Eosinophils % Basophils % INR PTT (Actin FS) Sodium Potassium Chloride Carbon Dioxide Anion Gap BUN Creatinine Creat Clearance w eGFR Random Glucose Calcium Phosphorus Magnesium Total Bilirubin Direct Bilirubin 1.0 H AST ALT Alkaline Phosphatase C-Reactive Protein 2.3 H Total Protein Albumin Total Amylase 54 Lipase 153 Blood Type B POSITIVE Antibody Screen Negative Active Medications Generic Name Dose Route Start Last Admin Trade Name Freq PRN Reason Stop Dose Admin Acetaminophen 650 mg 07/08/17 20:30 Tylenol - PO Q6H PRN FEVER OR PAIN Acetaminophen 325 mg 07/08/17 15:13 Tylenol - PO 07/11/17 15:12 Q4H PRN PAIN Hydromorphone HCl 0.5 mg 07/09/17 06:00 Dilaudid Injection - IM Q4H PRN SEVERE PAIN Metronidazole 100 mls @ 100 mls/hr 07/08/17 18:00 Flagyl 500mg Premixed Ivpb - IVPB Q8H-IV TITA Lactated Ringer's 1,000 mls @ 125 mls/hr 07/08/17 14:45 Lactated Ringers Solution IV ASDIR TITA Levofloxacin 100 mls @ 100 mls/hr 07/09/17 10:00 Levaquin 500 Mg Premixed Ivpb - IVPB DAILY TITA Pantoprazole Sodium 40 mg/ 100 mls @ 200 mls/hr 07/08/17 22:00 Sodium Chloride IVPB BID TITA Oxycodone HCl 5 mg 07/08/17 15:13 Roxicodone - PO Q4H PRN for pain 7-10 please - use bef ASSESSMENT/PLAN: 41 yo f w/ PMH PUD presents complaining of 10/10 epigastric abdominal pain radiating to her back. #choledocholithiasis likely converting to cholelithiasis following stone passage -AST 79, ALT 244, ALP 507 in ED -Abdominal pain has resolved today -abd u/s and MRCP shows cholelithiasis and sludge in gallbladder -for lap norah today w/ dr. Hawk -RPT CMP, CBC in AM #PMH Peptic ulcer disease -Protonix 40 IV BID #FEN -LR @ 100 -monitor lytes -NPO till after surgery #Dispo: -Admitted for cholelithaisis; for lap norah today Problem List - Problems (1) Calculus of gallbladder with acute and chronic cholecystitis without obstruction Code(s): K80.12 - CALCULUS OF GB W ACUTE AND CHRONIC CHOLECYST W/O OBSTRUCTION (2) Elevated LFTs Code(s): R79.89 - OTHER SPECIFIED ABNORMAL FINDINGS OF BLOOD CHEMISTRY (3) PUD (peptic ulcer disease) Code(s): K27.9 - PEPTIC ULC, SITE UNSP, UNSP AC OR CHR, W/O HEMOR OR PERF Visit type - Emergency Visit Emergency Visit: Yes ED Registration Date: 07/07/17 Care time: The patient presented to the Emergency Department on the above date and was hospitalized for further evaluation of their emergent condition. - New Patient This patient is new to me today: Yes Date on this admission: 07/08/17 - Critical Care Critical Care patient: No
[2017-07-08] MEDS: oxyCODONE HCL 5 MG TABLET PO PRN (18:01)
[2017-07-08] MEDS ORDERED: HYDROmorphone HCL CARPU-JECT 1 MG/1 ML DISP.SYRIN IM PRN (20:17)
[2017-07-08] MEDS ORDERED: PANTOPRAZOLE SODIUM 40 MG VIAL ONE (20:52)
[2017-07-08] MEDS ORDERED: SODIUM CHLORIDE 100 ML IVPB ONE (20:52)
[2017-07-08] MEDS: PANTOPRAZOLE SODIUM 40 MG in SODIUM CHLORIDE 100 ML IVPB SCH (21:16)
[2017-07-09] MEDS: METRONIDAZOLE 500 MG PREMIXED 100 ML IVPB SCH ×2 (02:39→09:58)
[2017-07-09] MEDS ORDERED: HYDROmorphone HCL CARPU-JECT 1 MG/1 ML DISP.SYRIN IM PRN ×2 (06:00)
[2017-07-09 07:24] LABS: MCH 26.7 pg (25.7-33.7); MCHC 32.7 g/dl (32.0-36.0); MEAN CELL VOLUME 81.4 fl (80-96); MEAN PLT VOLUME 7.8 fl (7.5-11.1); PLATELET COUNT 237 K/MM3 (134-434); WHITE BLOOD COUNT 7.9 K/mm3 (4.0-10.0)
[2017-07-09] MEDS ORDERED: SODIUM CHLORIDE 100 ML IVPB ONE (09:54)
[2017-07-09] MEDS ORDERED: PANTOPRAZOLE SODIUM 40 MG VIAL ONE (09:54)
[2017-07-09] MEDS: oxyCODONE HCL 5 MG TABLET PO PRN (09:57)
[2017-07-09] MEDS ORDERED: LEVOFLOXACIN 500 MG IVPB 100 ML IVPB SCH (10:00)
[2017-07-09] MEDS: PANTOPRAZOLE SODIUM 40 MG in SODIUM CHLORIDE 100 ML IVPB SCH (11:59)
--- NOTE | 2017-07-09 12:25 | PN ---
GI Progress Note Subjective: GI NOte: Looks great postop and tolerating solids. LFTs still pending. - Objective Vital Signs: Vital Signs Temperature 98.7 F 07/09/17 06:00 Pulse Rate 53 L 07/09/17 06:00 Respiratory Rate 18 07/09/17 06:00 Blood Pressure 102/63 07/09/17 06:00 O2 Sat by Pulse Oximetry (%) 99 07/08/17 21:00 Laboratory Tests 07/07/17 07/08/17 07/08/17 13:00 07:30 07:30 Total Bilirubin 3.0 H D 1.7 H D Direct Bilirubin 1.0 H AST 79 H D 35 D ALT 244 H D 170 H D Alkaline Phosphatase 507 H D 377 H D C-Reactive Protein 2.3 H 07/09/17 06:15 Total Bilirubin Pending Direct Bilirubin AST Pending ALT Pending Alkaline Phosphatase Pending C-Reactive Protein Constitutional: No Distress Gastrointestinal Inspection: Yes: Scars (healing lap choly incisions) ...Auscultate: Yes: Normoactive Bowel Sounds ...Palpate: Yes: Soft Labs: CBC, BMP 07/09/17 06:15 INR, PTT INR 1.12 (0.82-1.09) 07/08/17 07:30 Assessment/Plan Day 1 s/p lap choly for cholecystitis. Discussed case with Dr Hawk. Await LFTs.
--- NOTE | 2017-07-09 12:28 | PN ---
Progress Note (short form) - Note Progress Note: Pt seen and examined in bed. Pt had pain this morning and got oxycodone resulting in some nausea, but tolerated breakfast ok. Has been ambulating, voiding. No fevers, no vomiting. Nausea resolving and pain improving. Has some gas. Vital Signs Period Temp Pulse Resp BP Sys/Ford Pulse Ox Last 24 Hr 97.8 F-98.7 F 53-87 13-20 98-122/60-72 98-100 PE: abdomen soft, nondistended, tender RUQ and RLQ without rebound or guarding, incisional tenderness at umbilicus and RLQ dressings C/D/I x 4 CBC WBC 7.9 K/mm3 (4.0-10.0) D 07/09/17 06:15 RBC 4.57 M/mm3 (3.60-5.2) 07/09/17 06:15 Hgb 12.2 GM/dL (10.7-15.3) 07/09/17 06:15 Hct 37.2 % (32.4-45.2) 07/09/17 06:15 MCV 81.4 fl (80-96) 07/09/17 06:15 MCH 26.7 pg (25.7-33.7) 07/09/17 06:15 MCHC 32.7 g/dl (32.0-36.0) 07/09/17 06:15 RDW 14.0 % (11.6-15.6) 07/09/17 06:15 Plt Count 237 K/MM3 (134-434) 07/09/17 06:15 MPV 7.8 fl (7.5-11.1) 07/09/17 06:15 Neutrophils % 75.7 % (42.8-82.8) 07/08/17 07:30 Lymphocytes % 15.1 % (8-40) D 07/08/17 07:30 Monocytes % 7.5 % (3.8-10.2) 07/08/17 07:30 Eosinophils % 1.1 % (0-4.5) 07/08/17 07:30 Basophils % 0.6 % (0-2.0) 07/08/17 07:30 CMP Sodium 138 mmol/L (136-145) 07/09/17 06:15 Potassium 4.7 mmol/L (3.5-5.1) 07/09/17 06:15 Chloride 103 mmol/L (98-107) 07/09/17 06:15 Carbon Dioxide 22 mmol/L (21-32) 07/09/17 06:15 Anion Gap 13 (8-16) 07/09/17 06:15 BUN 10 mg/dL (7-18) D 07/09/17 06:15 Creatinine 0.5 mg/dL (0.55-1.02) L 07/09/17 06:15 Creat Clearance w eGFR > 60 (>60) 07/09/17 06:15 Random Glucose 80 mg/dL (74-106) 07/09/17 06:15 Calcium 8.5 mg/dL (8.5-10.1) 07/09/17 06:15 Phosphorus 3.3 mg/dL (2.5-4.9) D 07/09/17 06:15 Magnesium 2.2 mg/dL (1.8-2.4) 07/08/17 07:30 Total Bilirubin 1.4 mg/dL (0.2-1.0) H 07/09/17 06:15 Direct Bilirubin 1.0 mg/dL (0.0-0.2) H 07/08/17 07:30 AST 56 U/L (15-37) H D 07/09/17 06:15 ALT 166 U/L (12-78) H 07/09/17 06:15 Alkaline Phosphatase 396 U/L (45-117) H 07/09/17 06:15 Creatine Kinase 73 IU/L (26-192) 07/07/17 13:00 Troponin I < 0.02 ng/ml (0.00-0.05) 07/07/17 13:00 C-Reactive Protein 2.3 MG/DL (0.00-0.3) H 07/08/17 07:30 Total Protein 5.9 g/dl (6.4-8.2) L 07/09/17 06:15 Albumin 3.1 g/dl (3.4-5.0) L 07/09/17 06:15 Total Amylase 54 U/L (25-115) 07/08/17 07:30 Lipase 153 U/L (73-393) 09/05/17 07:30 bili down a little, LFTs generally down/stable A/P: POD1 s/p laparoscopic cholecystectomy doing well Tolerating diet Ambulating, voiding Pain ok with po pain meds OK for d/c home with lifting restrictions Postop instructions in d/c plan Pt to call office for f/u in 2 wks at [phone] Problem List - Problems (1) Calculus of gallbladder with acute and chronic cholecystitis without obstruction Code(s): K80.12 - CALCULUS OF GB W ACUTE AND CHRONIC CHOLECYST W/O OBSTRUCTION (2) Elevated LFTs Code(s): R79.89 - OTHER SPECIFIED ABNORMAL FINDINGS OF BLOOD CHEMISTRY (3) PUD (peptic ulcer disease) Code(s): K27.9 - PEPTIC ULC, SITE UNSP, UNSP AC OR CHR, W/O HEMOR OR PERF
[2017-07-09 12:46] LABS: ALBUMIN 3.1 g/dl (3.4-5.0); ALK PHOS 396 U/L (45-117); ANION GAP 13 (8-16); BILIRUBIN,TOTAL 1.4 mg/dL (0.2-1.0); CALCIUM 8.5 mg/dL (8.5-10.1); CO2 22 mmol/L (21-32); CREATININE 0.5 mg/dL (0.55-1.02); GLUCOSE,RANDOM 80 mg/dL (74-106); PHOSPHOROUS 3.3 mg/dL (2.5-4.9); SGOT/AST 56 U/L (15-37); SGPT/ALT 166 U/L (12-78); TOT PROT 5.9 g/dl (6.4-8.2)
--- NOTE | 2017-07-09 13:27 | PN ---
Teaching Attending Note Name of Resident: Oscar Bonner ATTENDING PHYSICIAN STATEMENT I saw and evaluated the patient. I reviewed the resident's note and discussed the case with the resident. I agree with the resident's findings and plan as documented. SUBJECTIVE:mild pain alleviated with pain medications. tolerating diet. denies CP, SOB, fever, chills, N/V/C/D. passing flatus, no BM OBJECTIVE: Last Vital Signs Temp Pulse Resp BP Pulse Ox 98.9 F 58 L 18 108/72 99 07/09/17 10:00 07/09/17 10:07/09/17 10:07/09/17 10:07/08/17 21:00 General NAD abdomen slightly distended. surgical incision with dressing over c/d/i, mild tenderness surrounding surgical incisions. ASSESSMENT AND PLAN: 41 yo F with PMH of gastric ulcers, gallstones who presented to the ER today with epigastric pain radiating to her back. 1. Cholelithiasis with probable choledocholithiasis and passed stone-s/p laprapscopic cholecystectomy 07/08. tolerating diet. received 3 days of levaquin/ flagyl. will d/c as no longer needed. LFT stable. advised on risks of narcotics including lethargy and constipation. will need to f/u with sugery in 2 weeks. as per surgery is stable for d/c home. 2. Gastric ulcers- Protonix 3. Hypophosphatemia- Neutraphos post-op 4. d/c home. advised need to follow up with surgeon and need to establish primary care with PMD. advised should see PMD in 1 week and then routinely.
[2017-07-09 14:29] VITALS: BP 103/65; PULSE 59; TEMP 98.3
--- NOTE | 2017-07-09 14:38 | PATH ---
Surgical Pathology Report Patient Name: TESSA CADE [facility]. Rec. #: [id number] /Age/Gender: 1975 (Age: 41) / F Account: [id number] Location: [address] [place] [address]/[facility] Taken: 07/08/2017 Received: 07/08/2017 Reported: 07/09/2017 Physicians: Lavon Capps M.D. Specimen(s) Received GALLBLADDER Clinical History Cholecystitis, cholelithiasis Final Diagnosis GALLBLADDER, CHOLECYSTECTOMY: ACUTE AND CHRONIC CHOLECYSTITIS AND CHOLELITHIASIS. Electronically Signed Giovanni Rubio M.D. Gross Description Received in formalin, labeled "gallbladder" is a 9.0 x 3.3 x 3.3 cm gallbladder with a 0.2 cm in length portion of cystic duct attached. The outer surface is graham-pink and varies from smooth to shaggy. The lumen contains green, tenacious bile as well as multiple brown, irregular choleliths ranging from 0.5-1.8 cm in greatest dimension. The mucosa is graham and focally hyperemic. The wall of the gallbladder averages 0.1 cm in thickness. Batting Machine Operator sections are submitted in one cassette. 07/08/201707/08/2017
--- NOTE | 2017-07-09 21:21 | DS ---
Physical Exam: SUBJECTIVE: Patient seen and examined at bedside. Patient has no new complaints. s/p lap norah. No pain at incision sites. OBJECTIVE: Vital Signs Period Temp Pulse Resp BP Sys/Ford Pulse Ox Last 24 Hr 97.9 F-98.9 F 53-59 17-18 98-110/60-72 99-100 PHYSICAL EXAM GENERAL: The patient is awake, alert, and fully oriented, in no acute distress. HEAD: Normal with no signs of trauma. EYES: extraocular movements intact, sclera anicteric, conjunctiva clear. NECK: Trachea midline, full range of motion, supple. LUNGS: Breath sounds equal, clear to auscultation bilaterally, no wheezes, no crackles, no accessory muscle use. HEART: Regular rate and rhythm, S1, S2 without murmur, rub or gallop. ABDOMEN: Soft, mild tenderness to palpation in all quadrants, nondistended, normoactive bowel sounds, no guarding, no rebound. EXTREMITIES: 2+ pulses, warm, well-perfused, no edema. NEUROLOGICAL: Cranial nerves II through X grossly intact. Normal speech, gait not observed. PSYCH: Normal mood, normal affect. SKIN: Warm, dry, normal turgor, no rashes or lesions noted. No erythems, swelling or confluence at surgical sites. LABS Laboratory Results - last 24 hr 07/09/17 07/09/17 06:15 06:15 WBC 7.9 D RBC 4.57 Hgb 12.2 Hct 37.2 MCV 81.4 MCH 26.7 MCHC 32.7 RDW 14.0 Plt Count 237 MPV 7.8 Sodium 138 Potassium 4.7 Chloride 103 Carbon Dioxide 22 Anion Gap 13 BUN 10 D Creatinine 0.5 L Creat Clearance w eGFR > 60 Random Glucose 80 Calcium 8.5 Phosphorus 3.3 D Total Bilirubin 1.4 H AST 56 H D ALT 166 H Alkaline Phosphatase 396 H Total Protein 5.9 L Albumin 3.1 L HOSPITAL COURSE: Date of Admission:07/07/17 The patient is a 41 yo f w/ PMH peptic ulcer disease who presents to the ED complaining of abdominal pain. She was in her usual state of health until 3 weeks ago when she began to experience burning 10/10 epigastric pain which radiated to her back. The patient believed that the pain was similar to her peptic ulcer pain, so she saw Dr. Currie who prescribed her omeprazole and gaviscon which did not help. The pain became more frequent and began to be associated with chills, prompting the patient to come to the ED. In the ED, the patient was afebrile w/ vital signs WNL. Patient's AST was 79, her ALT was 244 and her ALP was 507. An MRCP and abdominal ultrasound both showed cholelithiasis and sludge in the galbladder. The patient was admitted for choledocholithiasis converting to cholelithasis following stone passage. Dr. Currie from GI was consulted. Dr. Hawk from surgery was consulted. Patient was scheduled for laparoscopic cholecystectomy on 07/08/2017. She was treated with IV fluids, protonix, sucralfate, mylanta. Patient tolerated surgery well and remained overnight in the hospital. Pain was controlled with percocet and prophylactic antibiotics were administered. The next day, patient was complaining of minimal pain relieved by medications, was walking independently and was voiding appropriately. Patient was discharged home with instructions to resume her usual activities gradually, but no heavy exertion or lifting more than 10-15 pounds for 1 month. She was instructed to follow up with Dr. Hawk within 2 weeks of discharge. She was also instructed to follow up with her PMD within one week of discharge. The patient was advised to have her liver enzymes checked as an outpatient to ensure that they were normalizing. She was advised to call her doctor if she experienced fever, increased pain, bleeding or drainage from wound sites or inability to urinate. Date of Discharge: 07/09/17 Minutes to complete discharge: 40 Discharge Summary Reason For Visit: CHOLECYSTITIS Condition: Improved - Instructions Diet, Activity, Other Instructions: Postoperative instructions: You had a laparoscopic cholecystectomy on 07/08/[address] Han Hawk of [facility]. Resume your usual activities gradually, but no heavy exertion or lifting more than 10-15 pounds for 1 month. Remove your dressings tomorrow. Sticky tapes on the incisions will fall off by themselves. You may then shower daily, just pat the incision areas dry. No swimming or baths/hot tubs until the incisions are healed. Eat lightly at first, but advance to your usual diet as tolerated. For pain, use Tylenol every 6 hours as needed. If you are prescribed a Tylenol/ narcotic combination, switch back to Tylenol as your pain decreases. Do not take more than 3000mg of acetaminophen in a day. Take medications as prescribed or indicated on the labeling. Call Dr. Hawk's office at [phone] for your postop appointment (Friday ~ 2 weeks after surgery). Call Dr. Hawk if you have: - increasing pain not responsive to pain medication - fever of 101F or higher - vomiting - unusual or increasing bleeding or drainage from wounds - increasing redness or swelling at wound sites - inability to urinate Also, see your PMD within a week. Information on a medical doctor in the area has been provided. please schedule an appointment to see him or another physician of your choice. You will also need to have your liver enzymes checked to ensure they have normalized. Either the surgeon or primary care doctor can order this test. Referrals: Petar Potter MD [Staff Physician] - 1 Week (primary care) Han Hawk MD [Staff Physician] - 2 Weeks (surgery) Disposition: HOME - Home Medications Comprehensive Discharge Medication List: Ambulatory Orders Ranitidine HCl [Zantac] 150 mg PO BID 07/07/17 Oxycodone HCl/Acetaminophen [Percocet 5-325 mg Tablet] 1 combo PO Q4H PRN #18 tablet MDD 20 07/09/17 Problem List - Problems (1) Calculus of gallbladder with acute and chronic cholecystitis without obstruction Code(s): K80.12 - CALCULUS OF GB W ACUTE AND CHRONIC CHOLECYST W/O OBSTRUCTION (2) Elevated LFTs Code(s): R79.89 - OTHER SPECIFIED ABNORMAL FINDINGS OF BLOOD CHEMISTRY (3) PUD (peptic ulcer disease) Code(s): K27.9 - PEPTIC [facility], SITE UNSP, UNSP AC OR CHR, W/O HEMOR OR PERF This patient is new to me today: No Emergency Visit: Yes ED Registration Date: 07/07/17 Care time: The patient presented to the Emergency Department on the above date and was hospitalized for further evaluation of their emergent condition. Critical Care patient: No - Discharge Referral Referred to [facility] Yes Physician Referral: Petar Bello MD ([facility])
--- NOTE | 2017-07-12 08:53 | OP ---
DATE OF OPERATION: 07/08/2017 PREOPERATIVE DIAGNOSES: Acute and chronic cholecystitis with cholelithiasis. POSTOPERATIVE DIAGNOSES: Acute and chronic cholecystitis with cholelithiasis. PROCEDURE PERFORMED: Laparoscopic cholecystectomy. SURGEON: Han Hawk MD PEANUT ROASTER: Jonh Schreiber MD ANESTHESIA: General endotracheal and local, 17 mL of 0.5% Marcaine. ESTIMATED BLOOD LOSS: 5 mL FLUIDS: 1200 mL of crystalloid. SPECIMEN: Gallbladder to Pathology. FINDINGS: An enlarged, distended gallbladder with multiple stones. Critical view was identified. DISPOSITION: Stable and extubated to PACU. INDICATIONS FOR PROCEDURE: The patient is a 41-year-old, healthy female with a history only of peptic ulcer diagnosed 3 years ago on endoscopy, who takes daily omeprazole, and 3 weeks prior began having epigastric pain that she thought was related to her peptic ulcer disease. Eventually, it continued to get worse and was also radiating to her back, associated with an episode of vomiting and some anorexia. She finally came to the emergency room where she was afebrile with a white count of 8.8 and elevated liver function tests with a bilirubin of 3, alkaline phosphatase of 500, and elevated ALT and AST, with an ultrasound showing gallstones and a distended gallbladder, with a normal CBD. MRCP was negative for choledocholithiasis, and the trend in her labs the next morning showed decreases in her LFTs, indicating that she had probably passed a stone. Risks, benefits, and alternatives of laparoscopic, possible open cholecystectomy were discussed with the patient including, but not limited to, bleeding, infection, injury to adjacent structures, bile duct leak or injury, and need for further procedures. She is agreeable to and has signed informed consent for the same procedure and is now brought to the operating room for that. OPERATIVE TECHNIQUE: The patient is brought to the operating room, laid supine on the operating table. Sequential compression devices are applied to bilateral lower extremities. As she has been on treatment doses of antibiotics for her cholecystitis, no additional antibiotics are given immediately prior in the operating room. After induction and intubation by Anesthesia, the patient's abdomen is prepped and draped in sterile fashion. Local anesthetic was infiltrated into the anticipated incision and port sites as we proceeded. A small supraumbilical midline incision is made with a scalpel and carried into subcutaneous tissues with electrocautery until the abdominal wall fascia is identified, scored, and elevated with Lisa clamps. The fascia is entered bluntly with the tip of a clamp and a fingertip used to ensure entry into the abdominal cavity and the absence of underlying adhesions. A stay suture of 0 Vicryl in figure-of-8 fashion is placed in the fascia for later closure, and the Rakan trocar is introduced directly into the abdominal cavity and secured in place with the balloon. The abdomen is insufflated with carbon dioxide, and the laparoscope inserted to inspect the cavity. Patient is placed in reverse Trendelenburg position, and the gallbladder is visible and is noted to be quite elongated. An additional 5-mm port is placed in the subxiphoid area under direct vision and a grasper used to ensure that the gallbladder is, in fact, soft and will be able to be grasped without decompression. Positioning for the other two 5-mm ports given the gallbladder's size and the patient's small body habitus ended up being lower than usual, closer to the right lower quadrant than the right upper quadrant, but these were also placed under direct vision and 2 graspers introduced, 1 to grasp the fundus of the gallbladder and elevate it over the liver edge, the other to grasp the infundibulum and retract it laterally. Dr. Schreiber was essential in both assisting with entering the abdomen as well as retraction and manipulation of the gallbladder throughout the case. A [place] dissector was then used to begin dissecting the peritoneum at the base of the gallbladder. The cystic duct was quickly identified and noted to be slightly enlarged. Hook cautery was used to begin taking the peritoneum off of the base of the gallbladder, working both medially and laterally up from the base toward the sides to help facilitate visualization of the ductal structures. The cystic duct was then isolated the rest of the way with a [place] dissector and clearly noted to be the only structure entering the gallbladder from both medial and lateral views ( the critical view). The cystic artery was also identified medial to this and isolated. The cystic duct was then clipped first 3 proximally and 1 distally and divided with endoscissors. The clips were able to be completely closed all the way around the duct. The cystic artery was then also clipped, 2 proximally, 1 distally, and divided with endoscissors and the hook cautery used to continue taking the gallbladder off the liver bed. Once the gallbladder had been completely from the liver bed, it was placed in an Endo Catch bag and removed from the umbilical port site and passed off the table for specimen. There was at least 1 moderately large stone palpable within it. Once the Rakan trocar and pneumoperitoneum had been re-established, the camera was returned to the umbilical port and the operative field inspected for hemostasis. There had been a couple of spots in the liver bed cauterized with the hook cautery toward the end of the dissection, but there was no active bleeding noted. Suction gum worker was used to gently suction up just a little bit of blood clot in the area. The patient was then returned to neutral position. The 5-mm ports were removed under direct vision, and then the Rakan and camera were also removed from the abdomen, which was exsufflated of carbon dioxide. The stay suture at the umbilical site was tied to close the fascia there. Hemostasis was achieved in the port sites with electrocautery where needed. Some additional local anesthetic was infiltrated into the port sites, and skin was closed with 4-0 Vicryl subcuticular sutures including a running at the umbilical site. The wounds were covered with benzoin and Steri-Strips and dressed with gauze and Tegaderm. Counts were correct at the end of the procedure. The patient was then awakened and extubated by Anesthesia and moved back to her stretcher. She was then taken to the recovery room in stable condition, having tolerated the procedure well. Han Hawk M.D. [id number] MTDD
--- NOTE | 2017-07-18 10:38 | EKG ---
Test Reason : Blood Pressure : / mmHG Vent. Rate : 055 BPM Atrial Rate : 055 BPM P-R Int : 138 ms QRS Dur : 090 ms QT Int : 438 ms P-R-T Axes : 040 081 056 degrees QTc Int : 419 ms SINUS BRADYCARDIA LOW VOLTAGE QRS INCOMPLETE RBBB NO PREVIOUS ECGS AVAILABLE REPEAT EKG IF CLINICALLY INDICATED Confirmed by CRISTIAN CAUSEY MD ([id number]) on 07/08/2017 6:01:20 PM Also confirmed by CRISTIAN CAUSEY MD ([id number]), society editor STEPHANIE REYNAGA ([id number]) on 07/18/2017 10:38:26 AM Referred By: Confirmed By:CRISTIAN CAUSEY MD
== END 2017-07-09 16:43 | disposition home or self-care (01) | DRG 418 ==
LOC: JER 11:35 → JERBED 14:59 → J5S 18:19
PROVIDERS: ADMIT Internal Medicine; ATTEND Internal Medicine
PROC: 0FT44ZZ Resection of Gallbladder, Percutaneous Endoscopic Approach (ICD-10-PCS; principal; 2017-07-08 13:00)
DX: K80.12 Calculus of gallbladder with acute and chronic cholecystitis without obstruction (principal); R17 Unspecified jaundice; Z87.11 Personal history of peptic ulcer disease; K29.70 Gastritis, unspecified, without bleeding; Z87.891 Personal history of nicotine dependence
CPT/HCPCS: 36415; 74181-TC; 76705-TC; 80053; 81003; 81015; 82150; 82248; 83690; 83735; 84100; 84484; 84703; 85025; 85027; 85610; 85730; 86140; 86850; 86900; 86901; 88304-TC; 93005; 93010; 94760; 99284-25

== ENCOUNTER 2023-05-13 20:41 | Emergency (ER) | payer OTHER ==
[2023-05-13 20:49] VITALS: BP 108/66; PULSE 60; RESP 18; TEMP 98.5; BMI 21.1
[2023-05-13] MEDS ORDERED: MAG HYDROX/AL HYDROX/SIMETH 30 ML UNIT-DOSE CUP PO ONE (22:35)
[2023-05-13] MEDS ORDERED: ACETAMINOPHEN 1000 MG/100 ML BAG IVPB ONE (22:35)
[2023-05-13] MEDS ORDERED: FAMOTIDINE 20 MG/50 ML IVPB 20 MG/50 ML MG IVPB ONE ×2 (22:35→23:41)
[2023-05-13] MEDS ORDERED: LACTATED RINGERS SOLUTION 1,000 ML/1,000 ML INFUS.BAG IV SCH (22:45)
[2023-05-13] MEDS ORDERED: ACETAMINOPHEN INJECTION 100 ML IVPB ONE (23:41)
[2023-05-13] MEDS ORDERED: MAG HYDROX/AL HYDROX/SIMETH 30 ML UNIT-DOSE CUP ONE (23:41)
[2023-05-14 00:22] LABS: BASO % 0.8 % (0-2.0); EOS % 1.3 % (0-4.5); HEMATOCRIT 36.5 % (32.4-45.2); HEMOGLOBIN 11.7 GM/dL (10.7-15.3); LYMPH % 27.9 % (8-40); MCH 24.5 pg (25.7-33.7); MEAN CELL VOLUME 76.6 fl (80-96); MEAN PLT VOLUME 7.3 fl (7.5-11.1); MONO % 8.8 % (3.8-10.2); NEUT % 61.2 % (42.8-82.8); PLATELET COUNT 233 10^3/uL (134-434); RBC 4.77 M/mm3 (3.60-5.2); RDW 16.4 % (11.6-15.6); WHITE BLOOD COUNT 7.5 K/mm3 (4.0-10.0)
[2023-05-14 00:48] LABS: POTASSIUM 4.1 mmol/L (3.5-5.1)
[2023-05-14 00:50] LABS: CALCIUM 9.6 mg/dL (8.5-10.1)
[2023-05-14 00:51] LABS: ALBUMIN 3.8 g/dl (3.4-5.0); BLOOD UREA NITROGEN 11.3 mg/dL (7-18)
[2023-05-14 00:54] LABS: CREATININE 0.7 mg/dL (0.55-1.3)
[2023-05-14 01:08] LABS: BILIRUBIN,TOTAL 0.4 mg/dL (0.2-1)
== END 2023-05-14 01:28 | disposition home or self-care (01) ==
LOC: JER 20:41 → JERFT 20:41 → JER 05-14 01:28
DX: R10.13 Epigastric pain (principal); R10.11 Right upper quadrant pain; R63.0 Anorexia
CPT/HCPCS: 36415; 76705-TC; 80053; 83690; 85025; 99284-25